=== PATIENT | female | born 1990 | race Caucasian/White ===

== ENCOUNTER 2018-06-02 17:15 | Inpatient (IN) | payer OTHER ==
[2018-06-02] MEDS ORDERED: DEXTROSE 5%-LACTATED RINGERS 500 ML IV ONE ×2 (18:45→19:45)
[2018-06-02] MEDS ORDERED: AMPICILLIN - 2 GM in SODIUM CHLORIDE 100 ML IVPB ONE (19:15)
--- NOTE | 2018-06-02 19:37 | HP ---
Past Medical History - Primary Care Physician PCP:: Manny Guidry - Admission Chief Complaint: 37 weeks, labor History of Present Illness: 27 yo f , 37 weeks, c/o contraction since 11 am today, no rom, no bleeding , fhr cat 1, regular contraction, , states last baby was born in ambulance History Source: Patient Limitations to Obtaining History: No Limitations - Past Medical History ...: 3 ...Para: 2 ...Term: 2 ...: 0 ...Spon : 0 ...Induced : 0 ...LMP: 09/13/17 ... Weeks Gestation by Dates: 37.3 ...EDC by Dates: 06/20/18 ...EDC by Sono: 06/20/18 Heme/Onc: Yes: Anemia - Past Surgical History Hx Myomectomy: No Hx Transabdominal Cerclage: No - Social History Usual Living Arrangement: Yes: With Spouse History of Recent Travel: No Home Medications - Allergies Allergies/Adverse Reactions: Allergies Allergy/AdvReac Type Severity Reaction Status Date / Time No Known Drug Allergies Allergy Verified 06/02/18 18:47 - Home Medications Home Medications: Ambulatory Orders Ferrous Gluconate 1 tab PO DAILY 06/02/18 Vit 108/Iron/Folic AC [ One Tablet] 1 tab PO DAILY 06/02/18 Review of Systems - Review of Systems Constitutional: reports: No Symptoms Eyes: reports: No Symptoms HENT: reports: No Symptoms Neck: reports: No Symptoms Cardiovascular: reports: No Symptoms Respiratory: reports: No Symptoms Gastrointestinal: reports: No Symptoms Genitourinary: reports: No Symptoms Breasts: reports: No Symptoms Reported Musculoskeletal: reports: No Symptoms Integumentary: reports: No Symptoms Neurological: reports: No Symptoms Endocrine: reports: No Symptoms Hematology/Lymphatic: reports: No Symptoms Psychiatric: reports: No Symptoms Physical Exam - Maternity Vital Signs: Vital Signs Temperature 98.2 F 06/02/18 18:07 Pulse Rate 82 06/02/18 18:07 Respiratory Rate 18 06/02/18 18:07 Blood Pressure 134/80 06/02/18 18:07 O2 Sat by Pulse Oximetry (%) Constitutional: Yes: Well Nourished, No Distress, Calm Eyes: Yes: WNL, Conjunctiva Clear, EOM Intact HENT: Yes: WNL, Atraumatic, Normocephalic Neck: Yes: WNL, Supple, Trachea Midline Cardiovascular: Yes: WNL, Regular Rate and Rhythm Breast(s): Yes: WNL - Abdominal Exam/OB Fundal Height: 38 Number of Fetuses: Single Presentation: Vertex Contractions: Yes Regularity: Regular Monitor Mode: External Heart Rate Location: [facility] Category: I Accelerations: Uniform Decelerations: None - Vaginal Exam/OB Vaginal Bleediing: No Speculum Exam: No Dilatation (cm): 3 cm Effacement (%): 70 Amniotic Membrane Status: Bulging Presentation: Vertex/Position Station: -2 - Physical Exam Musculoskeletal: Yes: WNL Extremities: Yes: WNL Edema: Yes Edema: LLE: Trace, RLE: Trace Deep Tendon Reflex Grade: Normal +2 Psychiatric: Yes: WNL Hemorrhage Risk Assessment - Risk Factors Medium Risk Factors: Yes: None Risk Score: 1 Risk Level: Medium Risk Problem List - Problems (1) with 37 weeks completed gestation Code(s): Z3A.37 - 37 WEEKS GESTATION OF (2) Labor established Code(s): BLC4465 - Assessment/Plan admit, fhm pain management
[2018-06-02] MEDS ORDERED: AMPICILLIN SODIUM 2 GM VIAL ONE (19:38)
[2018-06-02] MEDS ORDERED: PROMETHAZINE HCL 25 MG/1 ML VIAL IVPUSH ONE (19:45)
[2018-06-02] MEDS ORDERED: BUTORPHANOL TARTRATE 1 MG/ML VIAL IVPUSH ONE (19:45)
[2018-06-02 20:24] VITALS: BMI 24.3
[2018-06-02 20:40] LABS: BASO % 0.3 % (0-2.0); EOS % 0.2 % (0-4.5); HEMATOCRIT 36.6 % (32.4-45.2); HEMOGLOBIN 13.1 GM/dL (10.7-15.3); LYMPH % 10.6 % (8-40); MCH 33.8 pg (25.7-33.7); MCHC 35.8 g/dl (32.0-36.0); MEAN CELL VOLUME 94.4 fl (80-96); MEAN PLT VOLUME 9.2 fl (7.5-11.1); MONO % 7.1 % (3.8-10.2); NEUT % 81.8 % (42.8-82.8); PLATELET COUNT 175 K/MM3 (134-434); RBC 3.87 M/mm3 (3.60-5.2); RDW 12.9 % (11.6-15.6); WHITE BLOOD COUNT 9.8 K/mm3 (4.0-10.0)
[2018-06-02 21:13] LABS: ANION GAP 9 MMOL/L (8-16); BLOOD UREA NITROGEN 12 mg/dL (7-18); CALCIUM 8.6 mg/dL (8.5-10.1); CHLORIDE 107 mmol/L (98-107); CO2 24 mmol/L (21-32); CREATININE 0.7 mg/dL (0.55-1.3); GLUCOSE,RANDOM 51 mg/dL (74-106); SODIUM 139 mmol/L (136-145)
[2018-06-02] MEDS ORDERED: DEXTROSE 5%-LACTATED RINGERS 1,000 ML IV SCH (22:30)
[2018-06-02] MEDS ORDERED: TUBERCULIN PPD 5 TU/0.1ML SYRINGE (IN PATIENT USE ONLY) ID ONE (22:30)
[2018-06-03] MEDS: AMPICILLIN - 1 GM in SODIUM CHLORIDE 100 ML IVPB SCH ×2 (00:45→03:45)
[2018-06-03] MEDS ORDERED: AMPICILLIN SODIUM 1 GM VIAL ONE ×2 (00:46→03:49)
--- NOTE | 2018-06-03 03:47 | PN ---
Progress Note (short form) - Note Progress Note: cx 5 cm 80 vx -2 mi, bulging, arom, clear, fhr cat 1, contraction irregular , advised pitocin rba discussed Problem List - Problems (1) with 37 weeks completed gestation Code(s): Z3A.37 - 37 WEEKS GESTATION OF (2) Labor established Code(s): KUI3254 -
[2018-06-03] MEDS ORDERED: PROMETHAZINE HCL 25 MG/1 ML VIAL ONE (03:49)
[2018-06-03] MEDS ORDERED: BUTORPHANOL TARTRATE 1 MG/ML VIAL ONE ×2 (03:49)
[2018-06-03] MEDS ORDERED: OXYTOCIN 30 UNITS in 0.9% NS 30 UNIT/500 ML INFUS.BAG IVPB SCH (04:00)
[2018-06-03] MEDS ORDERED: OXYTOCIN 20 UNITS in 0.9% NS 20 UNIT/1,000 ML INFUS.BAG IV ONE (05:30)
[2018-06-03] MEDS ORDERED: LIDOCAINE HCL 1% PRESERVATIVE FREE - 30ML VIAL ONE (05:47)
[2018-06-03] MEDS ORDERED: WITCH HAZEL 50% (TUCKS) 40 PAD/JAR PAD TP PRN (05:57)
[2018-06-03] MEDS ORDERED: BISACODYL 10 MG SUPP.RECT RC PRN (05:57)
[2018-06-03] MEDS ORDERED: BENZOCAINE 20% 57 GM BOTTLE TP PRN (05:57)
[2018-06-03] MEDS ORDERED: BENZOCAINE 28 GM HEMORRHOIDAL OINTMENT TP PRN (05:57)
[2018-06-03] MEDS ORDERED: METHYLERGONOVINE MALEATE 0.2 MG/1 ML AMP IM PRN (05:57)
[2018-06-03] MEDS ORDERED: OXYTOCIN 20 UNITS in 0.9% NS 20 UNIT/1,000 ML INFUS.BAG IV SCH ×2 (06:00→06:15)
[2018-06-03] MEDS: IBUPROFEN 600 MG TABLET (FP) PO PRN (08:08)
[2018-06-03] MEDS: ACETAMINOPHEN 325 MG TABLET (FP) PO PRN (08:08)
[2018-06-03] MEDS: FERROUS SO4 325 MG TABLET (FP) PO SCH ×2 (08:09→17:37)
[2018-06-03 08:39] LABS: ACTIVATED PTT 25.7 SECONDS (25.2-36.5); INR 0.92 (0.83-1.09); PROTHROMBIN TIME (PATIENT) 10.8 SEC (9.7-13.0)
[2018-06-03] MEDS: PRENATAL VITAMINS W/ FOLIC ACID TABLET (FP) PO SCH (10:46)
[2018-06-04 07:33] LABS: BASO % 0.4 % (0-2.0); EOS % 1.4 % (0-4.5); HEMATOCRIT 32.6 % (32.4-45.2); HEMOGLOBIN 11.3 GM/dL (10.7-15.3); LYMPH % 22.6 % (8-40); MCH 33.1 pg (25.7-33.7); MCHC 34.7 g/dl (32.0-36.0); MEAN CELL VOLUME 95.4 fl (80-96); MEAN PLT VOLUME 8.9 fl (7.5-11.1); MONO % 5.5 % (3.8-10.2); NEUT % 70.1 % (42.8-82.8); PLATELET COUNT 156 K/MM3 (134-434); RBC 3.41 M/mm3 (3.60-5.2); RDW 13.1 % (11.6-15.6); WHITE BLOOD COUNT 8.9 K/mm3 (4.0-10.0)
[2018-06-04] MEDS: FERROUS SO4 325 MG TABLET (FP) PO SCH ×2 (08:21→16:46)
[2018-06-04] MEDS: PRENATAL VITAMINS W/ FOLIC ACID TABLET (FP) PO SCH (09:32)
[2018-06-04] MEDS ORDERED: FLU VACCINE QUAD 60 MCG/0.5 ML (MDV 18-19) IM ONE (10:00)
--- NOTE | 2018-06-04 11:05 | PN ---
Post Progress Note - Subjective Subjective: 27 yo Para 3 status post vaginal delivery, seen and evaluated. Doing well. Post Day: 1 Type of Delivery: Vital Signs: Vital Signs Temperature 97.8 F 06/04/18 08:20 Pulse Rate 83 06/04/18 08:20 Respiratory Rate 18 06/04/18 08:20 Blood Pressure 116/80 06/04/18 08:20 O2 Sat by Pulse Oximetry (%) 99 06/03/18 06:45 Breast Exam: Yes: Soft Uterus: Yes: Fundus Firm Abdomen/GI: Yes: Abdomen soft, Tolerating PO Lochia: Yes: Rubra Lochia, amount: Moderate Extremities: Yes: Calves non-tender Activity: Ambulating - Labs Labs: CBC WBC 8.9 K/mm3 (4.0-10.0) 06/04/18 07:00 RBC 3.41 M/mm3 (3.60-5.2) L 06/04/18 07:00 Hgb 11.3 GM/dL (10.7-15.3) 06/04/18 07:00 Hct 32.6 % (32.4-45.2) 06/04/18 07:00 MCV 95.4 fl (80-96) 06/04/18 07:00 MCH 33.1 pg (25.7-33.7) 06/04/18 07:00 MCHC 34.7 g/dl (32.0-36.0) 06/04/18 07:00 RDW 13.1 % (11.6-15.6) 06/04/18 07:00 Plt Count 156 K/MM3 (134-434) 06/04/18 07:00 MPV 8.9 fl (7.5-11.1) 06/04/18 07:00 Absolute Neuts (auto) 6.2 K/mm3 (1.5-8.0) 06/04/18 07:00 Neutrophils % 70.1 % (42.8-82.8) 06/04/18 07:00 Lymphocytes % 22.6 % (8-40) D 06/04/18 07:00 Monocytes % 5.5 % (3.8-10.2) 06/04/18 07:00 Eosinophils % 1.4 % (0-4.5) D 06/04/18 07:00 Basophils % 0.4 % (0-2.0) 06/04/18 07:00 Nucleated RBC % 0 % (0-0) 06/04/18 07:00 Problem List - Problems (1) Status post normal vaginal delivery Code(s): CAD5411 - Assessment/Plan Status post vaginal delivery Stable Continue routine care
[2018-06-04] MEDS ORDERED: DIPHTH,PERTUSS(ACELL),TET 0.5 ML DISP.SYRIN IM ONE ×2 (16:00)
[2018-06-04] MEDS: ACETAMINOPHEN 325 MG TABLET (FP) PO PRN (20:20)
[2018-06-04] MEDS: IBUPROFEN 600 MG TABLET (FP) PO PRN (20:21)
[2018-06-04] MEDS ORDERED: SENNOSIDES/DOCUSATE COMBO (SENNA PLUS) TABLET (UD) PO PRN (22:00)
[2018-06-05] MEDS: IBUPROFEN 600 MG TABLET (FP) PO PRN (07:52)
[2018-06-05] MEDS: FERROUS SO4 325 MG TABLET (FP) PO SCH (07:53)
[2018-06-05] MEDS: ACETAMINOPHEN 325 MG TABLET (FP) PO PRN (07:53)
--- NOTE | 2018-06-05 08:02 | DS ---
Physical Exam-[facility] Vital Signs: Vital Signs Temperature 98.1 F 06/04/18 22:00 Pulse Rate 96 H 06/04/18 22:00 Respiratory Rate 18 06/04/18 22:00 Blood Pressure 137/82 06/04/18 22:00 O2 Sat by Pulse Oximetry (%) 99 06/03/18 06:45 Constitutional: Yes: Well Nourished Eyes: Yes: Conjunctiva Clear HENT: Yes: Atraumatic Neck: Yes: Supple Cardiovascular: Yes: Regular Rate and Rhythm Respiratory: Yes: Regular Gastrointestinal: Yes: Normal Bowel Sounds Pelvis: Yes: WNL External Genitalia: Yes: Normal Vaginal Exam: Yes: Normal Cervix: Yes: Normal Uterus: Yes: Firm ....Post : Yes: Uterus firm, Moderate lochia serosa Breast(s): Yes: WNL Musculoskeletal: Yes: WNL Extremities: Yes: WNL Neurological: Yes: Alert, Oriented ...Motor Strength: WNL Psychiatric: Yes: Alert, Oriented Labs: CBC, BMP 06/04/18 07:00 06/02/18 20:15 Delivery - Delivery Type of Anesthesia: None Episiotomy/Laceration: 1st degree EBL (cc): 300 Delivery, Single - Stages of Labor Date 1st Stage Initiatied: 06/02/18 Time 1st Stage Initiated: 15:00 Date 2nd Stage Initiated: 06/03/18 Time 2nd Stage Initiated: 05:30 Date of Delivery: 06/03/18 Time of Delivery: 05:41 Time Placenta Delivered: 05:45 - Condition of Infant 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 Present: No Gender: Male Weight: 7 lb 2 oz Position: Left, OA Total Hours ROM (Hrs/Mins): 2Hrs/0Mins - 1 Minute Total Score: 9 5 Minutes Total Score: 9 - [place] Feeding Plan Initial Plan: Exclusive throughout hospitalization Discharge Summary Reason For Visit: Normal spontaneous vaginal delivery Current Active Problems Labor established (Acute) with 37 weeks completed gestation (Acute) Status post normal vaginal delivery (Acute) Procedures: Principal: Normal vaginal delivery Hospital Course: Routine care Condition: Good - Instructions Diet, Activity, Other Instructions: Regular diet No douching, no sexual intercourse x 6 weeks F/U in clinic in 6 weeks Disposition: HOME - Home Medications Comprehensive Discharge Medication List: Ambulatory Orders Ferrous Gluconate 1 tab PO DAILY 06/02/18 Vit 108/Iron/Folic AC [ One Tablet] 1 tab PO DAILY 06/02/18
[2018-06-05 08:48] VITALS: BP 135/83; PULSE 92; TEMP 98
[2018-06-05] MEDS: PRENATAL VITAMINS W/ FOLIC ACID TABLET (FP) PO SCH (09:37)
== END 2018-06-05 13:00 | disposition home or self-care (01) | DRG 807 ==
LOC: JDEL 17:15 → JLDR 19:15 → J3W 06-03 08:04
PROVIDERS: ADMIT Obstetrics & Gynecology; ATTEND Obstetrics & Gynecology
PROC: 10E0XZZ Delivery of Products of Conception, External Approach (ICD-10-PCS; principal; 2018-06-03)
DX: O80 Encounter for full-term uncomplicated delivery (principal); Z37.0 Single live birth; Z3A.37 37 weeks gestation of pregnancy
CPT/HCPCS: 36415; 59025; 59409; 80048; 85025; 85610; 85730; 86593; 86850; 86900; 86901; 87389; 90686; 90715; G0008

== ENCOUNTER 2022-01-09 02:00 | Inpatient (IN) | payer OTHER ==
[2022-01-09 03:47] VITALS: RESP 18; BMI 28.2
[2022-01-09] MEDS ORDERED: DEXTROSE 5%-LACTATED RINGERS 1,000 ML IV SCH (03:50)
[2022-01-09 05:21] VITALS: BP 119/59; PULSE 69; TEMP 98.2
[2022-01-09 05:29] LABS: BASO % 0.3 % (0-2.0); EOS % 0.8 % (0-4.5); HEMATOCRIT 38.6 % (32.4-45.2); HEMOGLOBIN 13.3 GM/dL (10.7-15.3); LYMPH % 12.1 % (8-40); MCH 32.1 pg (25.7-33.7); MCHC 34.4 g/dl (32.0-36.0); MEAN CELL VOLUME 93.3 fl (80-96); NEUT % 79.8 % (42.8-82.8); PLATELET COUNT 165 10^3/uL (134-434); RBC 4.14 M/mm3 (3.60-5.2); RDW 12.8 % (11.6-15.6); WHITE BLOOD COUNT 9.6 K/mm3 (4.0-10.0)
[2022-01-09 05:32] LABS: INR 0.94 (0.83-1.09); PROTHROMBIN TIME (PATIENT) 10.8 SEC (9.7-13.0)
[2022-01-09 05:44] LABS: CALCIUM 8.5 mg/dL (8.5-10.1)
[2022-01-09 05:47] LABS: CREATININE 0.6 mg/dL (0.55-1.3)
== END 2022-01-09 06:20 | disposition home or self-care (01) | DRG 833 ==
LOC: JLDR 02:00
PROVIDERS: ADMIT Internal Medicine; ATTEND Internal Medicine
DX: O62.2 Other uterine inertia (principal); Z3A.38 38 weeks gestation of pregnancy
CPT/HCPCS: 36415; 80048; 85025; 85610; 85730; 86780; 86850; 86900; 86901; C9803-CS; U0003; U0005

== ENCOUNTER 2022-01-10 08:06 | Inpatient (IN) | payer OTHER ==
[2022-01-10] MEDS ORDERED: AMPICILLIN - 2 GM in SODIUM CHLORIDE 100 ML IVPB ONE (09:00)
[2022-01-10] MEDS ORDERED: SODIUM CHLORIDE 100 ML IVPB ONE (09:01)
[2022-01-10] MEDS ORDERED: AMPICILLIN SODIUM 2 GM VIAL ONE (09:01)
[2022-01-10] MEDS ORDERED: DEXTROSE 5%-LACTATED RINGERS 1,000 ML IV SCH (09:30)
[2022-01-10 09:43] VITALS: BMI 28.2
[2022-01-10] MEDS ORDERED: OXYTOCIN 20 UNITS in 0.9% NS 20 UNIT/1,000 ML INFUS.BAG IV ONE (10:27)
[2022-01-10] MEDS ORDERED: IBUPROFEN 600 MG TABLET (FP) PO ONE (10:55)
[2022-01-10] MEDS ORDERED: BENZOCAINE 28 GM HEMORRHOIDAL OINTMENT TP PRN (10:58)
[2022-01-10] MEDS ORDERED: METHYLERGONOVINE MALEATE 0.2 MG/1 ML AMP IM PRN (10:58)
[2022-01-10] MEDS ORDERED: WITCH HAZEL 50% (TUCKS) 40 PAD/JAR PAD TP PRN (10:58)
[2022-01-10] MEDS ORDERED: ACETAMINOPHEN 325 MG TABLET (FP) PO PRN (10:58)
[2022-01-10] MEDS ORDERED: BENZOCAINE 20% 57 GM BOTTLE TP PRN (10:58)
[2022-01-10] MEDS ORDERED: oxyCODONE HCL 5 MG TABLET PO PRN (10:58)
[2022-01-10] MEDS ORDERED: BISACODYL 10 MG SUPP.RECT RC PRN (10:58)
[2022-01-10] MEDS ORDERED: OXYTOCIN 20 UNITS in 0.9% NS 20 UNIT/1,000 ML INFUS.BAG IV SCH (11:00)
[2022-01-10] MEDS: IBUPROFEN 600 MG TABLET (FP) PO PRN ×3 (11:10→23:57)
[2022-01-10 11:48] LABS: CORD BASE EXCESS -2.9 mmol/L (0-2); CORD HCO3 23.4 mmHg (20-29); CORD PCO2 45.8 mmHg (30-78); CORD pH 7.326 (7.14-7.44)
[2022-01-10 11:49] LABS: CORD HCO3 22.4 mmHg (20-29); CORD PCO2 41.4 mmHg (30-78); CORD pH 7.352 (7.14-7.44)
[2022-01-10] MEDS ORDERED: AMPICILLIN - 1 GM in SODIUM CHLORIDE 100 ML IVPB SCH (13:00)
[2022-01-11] MEDS: IBUPROFEN 600 MG TABLET (FP) PO PRN ×3 (08:30→21:28)
[2022-01-11 08:54] LABS: BASO % 0.5 % (0-2.0); EOS % 1.2 % (0-4.5); HEMATOCRIT 31.6 % (32.4-45.2); HEMOGLOBIN 10.8 GM/dL (10.7-15.3); LYMPH % 13.3 % (8-40); MCH 32.4 pg (25.7-33.7); MCHC 34.2 g/dl (32.0-36.0); MEAN CELL VOLUME 94.6 fl (80-96); MEAN PLT VOLUME 8.7 fl (7.5-11.1); MONO % 5.8 % (3.8-10.2); NEUT % 79.2 % (42.8-82.8); PLATELET COUNT 155 10^3/uL (134-434); RBC 3.34 M/mm3 (3.60-5.2); WHITE BLOOD COUNT 7.3 K/mm3 (4.0-10.0)
[2022-01-11] MEDS ORDERED: DIPHTH,PERTUSS(ACELL),TET 0.5 ML DISP.SYRIN IM ONE (10:00)
[2022-01-11] MEDS ORDERED: FLU VACC QS2022-23(6MOS UP)/PF 60 MCG/0.5 ML SYRINGE IM ONE (10:00)
[2022-01-11 10:07] VITALS: RESP 18
[2022-01-11] MEDS ORDERED: SENNOSIDES/DOCUSATE COMBO (SENNA PLUS) TABLET (UD) PO PRN (22:00)
[2022-01-12 09:55] VITALS: BP 138/84; PULSE 93; TEMP 98.7
== END 2022-01-12 12:50 | disposition home or self-care (01) | DRG 807 ==
LOC: JDEL 08:06 → JLDR 08:33 → J3W 12:15
PROVIDERS: ADMIT Internal Medicine; ATTEND Internal Medicine
PROC: 10E0XZZ Delivery of Products of Conception, External Approach (ICD-10-PCS; principal; 2022-01-10)
DX: O80 Encounter for full-term uncomplicated delivery (principal); Z37.0 Single live birth; Z3A.38 38 weeks gestation of pregnancy
CPT/HCPCS: 36415; 36600; 59409; 82803; 85025; 90715; G0008; Q2036

== ENCOUNTER 2024-08-14 23:45 | Inpatient (IN) | payer OTHER ==
[2024-08-15] MEDS ORDERED: TERBUTALINE SULFATE 1 MG/1 ML VIAL SQ ONE (00:10)
[2024-08-15] MEDS: TERBUTALINE SULFATE 1 MG/1 ML VIAL SQ ONE (00:50)
[2024-08-15 01:18] LABS: ABSOLUTE IMMATURE GRANULOCYTES 0.04 x10^3/uL (0.0-0.031); BASOPHILS # 0.02 x10^3/uL (0.01-0.08); EOSINOPHIL % 0.9 % (0.7-5.8); EOSINOPHILS # 0.09 x10^3/uL (0.04-0.36); HEMATOCRIT 41.4 % (34.1-44.9); HEMOGLOBIN 14.1 g/dL (11.2-15.7); MCHC 34.1 g/dl (32.2-35.5); MEAN CELL VOLUME 92.2 fl (79.4-94.8); MEAN PLT VOLUME 10.8 fl (9.4-12.3); MONOCYTE # 0.71 x10^3/uL (0.24-0.86); MONOCYTE % 7.2 % (4.7-12.5); PLATELET COUNT 215 x10^3/uL (182-369); RDW 12.1 % (12.1-16.8)
[2024-08-15 01:26] VITALS: BMI 25.8
[2024-08-15] MEDS: CITRIC ACID/SODIUM CITRATE 30 ML UNIT-DOSE CUP PO ONE (01:59)
[2024-08-15] MEDS: ELECTROLYTE-148 SOLN 500 ML IV ONE (01:59)
[2024-08-15 02:00] LABS: POTASSIUM 4.1 mmol/L (3.5-5.1)
[2024-08-15] MEDS: ELECTROLYTE-148 SOLN 1,000 ML IV SCH ×2 (02:00→06:28)
[2024-08-15 02:01] LABS: CALCIUM 9.6 mg/dL (8.5-10.1)
[2024-08-15 02:05] LABS: CREATININE 0.6 mg/dL (0.55-1.3)
[2024-08-15 02:06] LABS: BILIRUBIN,TOTAL 0.6 mg/dL (0.2-1)
[2024-08-15 02:07] LABS: TOT PROT 7.2 g/dl (6.4-8.2)
[2024-08-15] MEDS ORDERED: morphine SULFATE (PF) 1 MG/2 ML SYRINGE ONE (02:12)
[2024-08-15] MEDS ORDERED: FENTANYL CITRATE/PF 50 MCG/ML VIAL ONE (02:12)
[2024-08-15 02:19] LABS: INR 0.98 (0.83-1.09); PROTHROMBIN TIME (PATIENT) 10.7 SEC (9.7-13.0)
[2024-08-15 02:22] LABS: ACTIVATED PTT 27.4 SECONDS (25.2-36.5)
[2024-08-15] MEDS ORDERED: METOCLOPRAMIDE HCL INJECTION 10 MG/2 ML VIAL ONE (02:28)
[2024-08-15] MEDS ORDERED: ONDANSETRON 4 MG/2 ML VIAL ONE (02:28)
[2024-08-15] MEDS ORDERED: DEXAMETHASONE SOD PHOSPHATE 4 MG/1 ML VIAL ONE (02:28)
[2024-08-15] MEDS ORDERED: ceFAZolin SODIUM 1 GM VIAL ONE (02:28)
[2024-08-15] MEDS ORDERED: OXYTOCIN 10 UNITS/ML VIAL ONE (02:41)
[2024-08-15] MEDS ORDERED: LIGASURE IMPACT TP ONE (02:41)
[2024-08-15 02:42] LABS: METHADONE, UR NEGATIVE (NEGATIVE); URINE AMPHETAMINES NEGATIVE (NEGATIVE); URINE BARBITURATES NEGATIVE (NEGATIVE); URINE BENZODIAZEPINES NEGATIVE (NEGATIVE)
[2024-08-15 02:51] LABS: COCAINE, UR NEGATIVE (NEGATIVE); OPIATES, URI NEGATIVE (NEGATIVE); PHENCYCLIDINE,URINE NEGATIVE (NEGATIVE)
[2024-08-15] MEDS ORDERED: ACETAMINOPHEN 325 MG TABLET (FP) PO PRN (03:49)
[2024-08-15] MEDS ORDERED: METHYLERGONOVINE MALEATE 0.2 MG/1 ML AMP IM PRN (03:49)
[2024-08-15 03:51] LABS: CORD PCO2 58.7 mmHg (30-78); CORD pH 7.265 (7.14-7.44)
[2024-08-15] MEDS: OXYTOCIN 20 UNITS in 0.9% NS 20 UNIT/1,000 ML INFUS.BAG IV SCH (03:55)
[2024-08-15] MEDS ORDERED: ONDANSETRON 4 MG/2 ML VIAL IVPUSH PRN (04:07)
[2024-08-15] MEDS: ACETAMINOPHEN 1000 MG/100 ML BAG IVPB PRN (04:15)
[2024-08-15 07:20] VITALS: RESP 18
[2024-08-15] MEDS: IBUPROFEN 600 MG TABLET (FP) PO PRN (10:20)
[2024-08-15] MEDS: SIMETHICONE 80 MG TAB.CHEW (FP) PO PRN (10:20)
[2024-08-15] MEDS ORDERED: oxyCODONE HCL 5 MG TABLET PO PRN ×2 (15:50)
[2024-08-16] MEDS ORDERED: BISACODYL 10 MG SUPP.RECT RC PRN (03:50)
[2024-08-16 08:06] LABS: ABSOLUTE IMMATURE GRANULOCYTES 0.04 x10^3/uL (0.0-0.031); BASOPHILS # 0.02 x10^3/uL (0.01-0.08); EOSINOPHIL % 0.4 % (0.7-5.8); EOSINOPHILS # 0.03 x10^3/uL (0.04-0.36); HEMATOCRIT 31.3 % (34.1-44.9); HEMOGLOBIN 10.6 g/dL (11.2-15.7); MCHC 33.9 g/dl (32.2-35.5); MEAN CELL VOLUME 93.7 fl (79.4-94.8); MEAN PLT VOLUME 9.8 fl (9.4-12.3); MONOCYTE # 0.45 x10^3/uL (0.24-0.86); MONOCYTE % 5.7 % (4.7-12.5); PLATELET COUNT 162 x10^3/uL (182-369); RDW 12.3 % (12.1-16.8)
[2024-08-16 21:43] VITALS: PULSE 79
[2024-08-17 09:53] VITALS: BP 127/77; TEMP 97.9
== END 2024-08-17 16:15 | disposition home or self-care (01) | DRG 785 ==
LOC: JDEL 23:45 → JLDR 08-15 00:45 → J3W 08-15 06:26
PROVIDERS: ADMIT Family Medicine; ATTEND Family Medicine
PROC: 10D00Z1 Extraction of Products of Conception, Low, Open Approach (ICD-10-PCS; principal; 2024-08-15)
PROC: 0UT70ZZ Resection of Bilateral Fallopian Tubes, Open Approach (ICD-10-PCS; 2024-08-15)
DX: O44.13 Complete placenta previa with hemorrhage, third trimester (principal); Z3A.37 37 weeks gestation of pregnancy; Z37.0 Single live birth; Z30.2 Encounter for sterilization
CPT/HCPCS: 36415; 36600; 80053; 80307; 82803; 85025; 85610; 85730; 86780; 86922; 87340; 88305-TC; 88307-TC; J0131